=== PATIENT | male | born 1950 | race Caucasian/White ===

== ENCOUNTER 2018-05-01 16:59 | Emergency (ER) | payer MEDICARE, OTHER ==
[2018-05-01 17:02] VITALS: BP 177/96
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
== END 2018-05-01 17:15 | disposition home or self-care (01) ==
LOC: UCEAST 16:59
DX: R07.89 Other chest pain (principal); R06.02 Shortness of breath; R11.2 Nausea with vomiting, unspecified; F43.9 Reaction to severe stress, unspecified; I25.10 Atherosclerotic heart disease of native coronary artery without angina pectoris; Z95.5 Presence of coronary angioplasty implant and graft; E78.5 Hyperlipidemia, unspecified; Z88.1 Allergy status to other antibiotic agents; Z82.49 Family history of ischemic heart disease and other diseases of the circulatory system
CPT/HCPCS: 93005; 99212; G0463

== ENCOUNTER 2018-05-01 17:37 | Emergency (ER) | payer MEDICARE, OTHER ==
--- NOTE | 2018-05-01 18:18 | RAD ---
Indication: Several hours chest pain. Comparison: November 09, 2013 Technique: Dual energy PA chest. Report: Clear lungs and pleural spaces. Negative for pneumothorax. The heart, pulmonary vasculature, and mediastinal contours are unremarkable. Unremarkable osseous structures and soft tissue contours. IMPRESSION: No evidence for acute intrathoracic disease.
[2018-05-01 18:21] LABS: ABS Basophils 0.1 10^3/ul (0-0.2); ABS Eosinophils 0.1 10^3/ul (0-0.6); ABS Lymphocytes 1.6 10^3/ul (1.0-4.8); ABS Monocytes 0.7 10^3/ul (0-0.8); ABS Neutrophils 8.7 10^3/ul (1.5-7.7); ABS Nucleated RBC 0 10^3/ul; Eosinophil % 0.5 % (0-6); Hematocrit 44 % (42-52); Hemoglobin 15.5 g/dl (14.0-18.0); Lymphocyte % 14.5 % (25-47); Mean Corpuscular HGB Conc 35 g/dl (31-36); Mean Corpuscular Hemoglobin 32 pg (27-31); Mean Corpuscular Volume 90 fL (80-94); Mean Platelet Volume 8.7 um3 (7.4-10.4); Nucleated Red Blood Cells % 0; Platelet Count 275 10^3/ul (150-450); Red Blood Count 4.87 10^6/ul (4.00-5.40); Red Cell Distribution Width 13 % (10.5-15); White Blood Count 11.2 10^3/ul (3.5-10.8)
[2018-05-01 18:30] LABS: INR 0.87 (0.77-1.02)
[2018-05-01 18:41] LABS: EGFR Non-African American 59.5 (>60)
[2018-05-01] MEDS ORDERED: clonazePAM TAB(*) 1 MG PO ONE (19:26)
[2018-05-01] MEDS ORDERED: Aspirin 81 mg CHEW TAB* 81 MG TAB.CHEW PO ONE (19:27)
[2018-05-01] MEDS ORDERED: Pantoprazole IV* 40 MG IV ONE (19:27)
[2018-05-01 22:26] VITALS: BP 142/91
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
== END 2018-05-01 22:24 | disposition home or self-care (01) ==
LOC: ED 17:37
DX: R07.89 Other chest pain (principal); Z91.410 Personal history of adult physical and sexual abuse; R06.02 Shortness of breath; R11.2 Nausea with vomiting, unspecified; K21.9 Gastro-esophageal reflux disease without esophagitis; K22.2 Esophageal obstruction; I25.10 Atherosclerotic heart disease of native coronary artery without angina pectoris; I10 Essential (primary) hypertension; Z95.5 Presence of coronary angioplasty implant and graft; E78.00 Pure hypercholesterolemia, unspecified; Z85.51 Personal history of malignant neoplasm of bladder; Z88.1 Allergy status to other antibiotic agents; Z82.49 Family history of ischemic heart disease and other diseases of the circulatory system; Z87.438 Personal history of other diseases of male genital organs; F43.9 Reaction to severe stress, unspecified; E78.5 Hyperlipidemia, unspecified
CPT/HCPCS: 36415; 71045; 80053; 82550; 82553; 83605; 83735; 83880; 84484; 85025; 85379; 85610; 85730; 93005; 96374; 99284; A9270-GY

== ENCOUNTER 2019-11-25 22:12 | Emergency (ER) | payer MEDICARE, BC ==
[2019-11-25 22:44] LABS: ABS Eosinophils 0.4 10^3/ul (0-0.6); ABS Lymphocytes 2.6 10^3/ul (1.0-4.8); ABS Monocytes 0.9 10^3/ul (0-0.8); ABS Neutrophils 5.5 10^3/ul (1.5-7.7); Hematocrit 40 % (42-52); Hemoglobin 14.2 g/dL (14.0-18.0); Lymphocyte % 27.6 %; Mean Corpuscular HGB Conc 36 g/dL (31-36); Mean Corpuscular Hemoglobin 32 pg (27-31); Mean Corpuscular Volume 90 fL (80-94); Mean Platelet Volume 9.1 fL (7.4-10.4); Nucleated Red Blood Cells % 0.1; Platelet Count 278 10^3/uL (150-450); Red Blood Count 4.43 10^6 /uL (4.18-5.48); Red Cell Distribution Width 13 % (10-15); White Blood Count 9.3 10^3/uL (3.5-10.8)
[2019-11-25 22:51] LABS: INR 0.98 (0.82-1.09)
[2019-11-25 22:55] LABS: Albumin/Globulin Ratio 1.5 (1-3); BUN/Creatinine Ratio 19.5 (8-20); Calcium 8.8 mg/dL (8.6-10.3); EGFR African American 73.6 (>60); EGFR Non-African American 60.9 (>60); Globulin 2.6 g/dL (2-4); Total Bilirubin 0.3 mg/dL (0.2-1.0); Total Protein 6.6 g/dL (6.4-8.9)
[2019-11-25 22:58] LABS: Troponin I 0.01 ng/mL (<0.03)
--- NOTE | 2019-11-25 23:03 | ED ---
HPI Chest Pain - HPI Summary HPI Summary: The patient is a 69 y/o male arriving by ambulance to [facility] from [facility] accompanied by with a chief complaint of sudden onset burning and pressure sensation in the mid-sternal chest onset around 1600 tonight. He reports that he was at rest watching football when he felt a burning pressure sensation in the lower esophageal region. He attempted to use Pepto Bismol and Mylanta to no relief, and his symptoms worsened with nausea, vomiting, and hyperventilating. He then went to [facility] a few hours after onset before being advised to come to the ED. At the worst, his pain was rated 8/10 in severity, but now it has improved to 3/10. He notes dizziness with the event, but he states that he often experiences this with Plavix use. He denies any diaphoresis, abdominal pain, or diarrhea. He notes cardiac history with similar sensation of chest pressure to which he did not suffer a PA but had stents placed following a cardiac catheterization. He also has a history of GERD and Schatzki ring. PMHx: CABG, CAD, HLD, HTN, bladder cancer. FHx: cardiac disease with PA fatalities. Nonsmoker, rare EtOH, no substance use. Medications reviewed. Allergies noted. - History of Current Complaint Chief Complaint: EDChestPainROMI Time Seen by Provider: 11/25/19 22:13 Hx Obtained From: Patient Onset/Duration: Started Hours Ago Time of Onset: 16:00 Timing: Constant Initial Severity: Severe - 8/10 Current Severity: Moderate - 3/10 Pain Intensity: 3 Pain Scale Used: 0-10 Numeric Chest Pain Location: Mid Sternal Chest Pain Radiates: No Character: Burning, Pressure/Squeezing Aggravating Factor(s): Nothing Alleviating Factor(s): Nothing Associated Signs and Symptoms: Positive: Chest Pain, Dizziness, Nausea, Vomiting , Other: - hyperventilating; Negative: diarrhea. Negative: Diaphoresis, Abdominal Pain - Allergy/Home Medications Allergies/Adverse Reactions: Allergies Allergy/AdvReac Type Severity Reaction Status Date / Time ciprofloxacin [From Cipro] Allergy Hallucinati Verified 11/25/19 21:22 ons PMH/Surg Hx/FS Hx/Imm Hx Endocrine/Hematology History: Reports: Other Endocrine/Hematological Disorders - HLD Cardiovascular History: Reports: Hx Coronary Artery Disease, Hx Hypercholesterolemia, Hx Hypertension GI History: Reports: Hx Gastroesophageal Reflux Disease Sensory History: Reports: Hx Contacts or Glasses Opthamlomology History: Reports: Hx Contacts or Glasses EENT History: Reports: Other - schatzki ring - Cancer History Cancer Type, Location and Year: Bladder cancer - Surgical History Surgical History: Yes Surgery Procedure, Year, and Place: bladder CA 2007. Melanoma 2000. 3 stents placed 2009 Infectious Disease History: No Infectious Disease History: Denies: Traveled Outside the [place] in Last 30 Days - Family History Known Family History: Positive: Cardiac Disease - PA (mother, father, brother with, sister also has), Other Family History: Positive for PA in mother and CAD in father. Brother - BPH. - Social History Alcohol Use: Rare Hx Substance Use: No Substance Use Type: Reports: None Hx Tobacco Use: No Smoking Status (MU): Never Smoked Tobacco Review of Systems Negative: Skin Diaphoresis Positive: Chest Pain - mid-sternal Positive: Other - hyperventilating Positive: Vomiting, Nausea. Negative: Abdominal Pain, Diarrhea Neurological: Other - dizziness All Other Systems Reviewed And Are Negative: Yes Physical Exam - Summary Physical Exam Summary: Appearance: Well-appearing, Well-nourished, lying in bed comfortably Skin: Warm, dry, no obvious rash Eyes: sclera anicteric, no conjunctival pallor ENT: mucous membranes moist, pharynx appears normal Neck: Supple, nontender Respiratory: Clear to auscultation, no signs of respiratory distress Cardiovascular: Normal S1, S2. No murmurs. Normal distal pulses in tibial and radial bilaterally. Abdomen: Soft, nontender, normal active bowel sounds present Musculoskeletal: Normal, Strength/ROM Intact Neurological: A&Ox3, awake and alert, mentation is normal, speech is fluent and appropriate Psychiatric: affect is normal, does not appear anxious or depressed Triage Information Reviewed: Yes Vital Signs On Initial Exam: Initial Vitals Temp Pulse Resp BP Pulse Ox 98.5 F 89 16 170/91 92 11/25/19 22:12 11/25/19 22:12 11/25/19 22:12 11/25/19 22:12 11/25/19 22:12 Vital Signs Reviewed: Yes Procedures - Sedation Patient Received Moderate/Deep Sedation with Procedure: No Diagnostics - Vital Signs Vital Signs Temp Pulse Resp BP Pulse Ox 11/25/19 22:35 65 24 142/84 93 11/25/19 22:12 98.5 F 89 16 170/91 92 - Laboratory Lab Results: Lab Results 11/25/19 11/25/19 Range/Units 21:48 21:48 WBC 9.3 (3.5-10.8) 10^3/uL RBC 4.43 (4.18-5.48) 10^6 /uL Hgb 14.2 (14.0-18.0) g/dL Hct 40 L (42-52) % MCV 90 (80-94) fL MCH 32 H (27-31) pg MCHC 36 (31-36) g/dL RDW 13 (10-15) % Plt Count 278 (150-450) 10^3/uL MPV 9.1 (7.4-10.4) fL Neut % (Auto) 58.6 % Lymph % (Auto) 27.6 % [place] % (Auto) 9.5 % Eos % (Auto) 4.0 % Baso % (Auto) 0.3 % Absolute Neuts (auto) 5.5 (1.5-7.7) 10^3/ul Absolute Lymphs (auto) 2.6 (1.0-4.8) 10^3/ul Absolute Monos (auto) 0.9 H (0-0.8) 10^3/ul Absolute Eos (auto) 0.4 (0-0.6) 10^3/ul Absolute Basos (auto) 0.0 (0-0.2) 10^3/ul Absolute Nucleated RBC 0.0 10^3/ul Nucleated RBC % 0.1 INR (Anticoag Therapy) 0.98 (0.82-1.09) Result Diagrams: 11/25/19 21:48 11/25/19 21:48 Lab Statement: Any lab studies that have been ordered have been reviewed, and results considered in the medical decision making process. - Radiology CXR Radiology Interpretation Completed By: ED Physician Summary of Radiographic Findings: No acute process. ED physician has reviewed and interpreted this report. Pending official read. - EKG 4349 Cardiac Rate: NL - 70 BPM EKG Rhythm: Sinus Rhythm Summary of EKG Findings: NSR at 70 BPM, old inferior infarct, P waves, QRS complex, and T waves are within normal limits, T waves and intervals are normal , no ischemic changes. This is a normal EKG. ED physician has reviewed and interpreted this EKG. Re-Evaluation - Re-Evaluation First Eval Re-Evaluation Time: 01:00 Comment: Dr. Enriquez has evaluated the patient and has determined that he can be discharged home as he will schedule an outpatient stress test with his own embalmer assistant. Chest Pain Course/Dx - Course Course Of Treatment: 69 y/o male with cardiac and esophageal history presenting with a chief complaint of mid-sternal burning and pressure pain onset around 1600 that worsened with the development of nausea, vomiting, and hyperventilation, but without any diaphoresis, abdominal pain, or diarrhea. Similar episode of chest pressure that indicated need for cath. Family history of fatal MIs. Physical exam is negative for acute findings. Blood work obtained to reveal creatinine of 1.18, alkaline phosphatase of 123, and troponin of 0.1. EKG at 2213 reveals NSR at 70 BPM with old inferior infarct. Patient administered NTG and Morphine for pain. Second troponin negative at 0.00. CXR, per my interpretation, reveals no acute process. Dr. Enriquez from hospitalist services will evaluate the patient. She states that he will schedule a stress test with his embalmer assistant at [facility] today as he was already planning on doing so, so Dr. Enriquez has agreed with discharge. Patient understands and agrees with plan. - Diagnoses Provider Diagnoses: Chest pain - Provider Notifications Discussed Care Of Patient With: Natasha Enriquez - hospitalist Time Discussed With Above Provider: 00:00 Instructed by Provider To: Other - I discussed the patient's case with Dr. Enriquez , and she will evaluate the patient. After evaluating the patient, she has determined that he is safe for discharge because he has planned to schedule a stress test wtih his embalmer assistant today. Discharge ED - Sign-Out/Discharge Documenting (check all that apply): Patient Departure - Patient will be discharged home. - Discharge Plan Condition: Good Disposition: HOME Prescriptions: Omeprazole 20 mg PO DAILY #14 capsule. Patient Education Materials: Chest Pain (ED) Additional Instructions: As we discussed, if you do have more pain or other worrisome symptoms we would want to see you back forthwith. Your EKG and blood tests were negative which does not give us 100% assurance that the pain wasn't coming from your heart, but it certainly makes it much less likely. Followup with your embalmer assistant this week will be important going forward as well. - Billing Disposition and Condition Condition: GOOD Disposition: Home - Attestation Statements Document Initiated by [place]: Yes Documenting Scribe: Tiff Hutchinson Provider For Whom Juana is Documenting (Include Credential): Dr. Tim Martinez MD Scribe Attestation: I, Tiff Hutchinson scribed for Dr. Tim Martinez MD on 11/26/19 at 0143. Scribe Documentation Reviewed: Yes Provider Attestation: The documentation as recorded by the Tiff pacheco accurately reflects the service I personally performed and the decisions made by me, Dr. Tim Martinez MD Status of [place] Document: Viewed
[2019-11-25] MEDS ORDERED: Nitro 2% OINT* (Nitroglycerin) 1 INCH/PAK PAK TOPICAL ONE (23:07)
[2019-11-25] MEDS ORDERED: Morphine 4 MG/ML VIAL (1 ml) 4 MG/ML VIAL IV ONE (23:07)
[2019-11-26 01:19] VITALS: BP 111/61
--- NOTE | 2019-11-26 01:46 | CONSULT ---
Subjective Date of Service: 11/26/19 Interval History: Hospitalist Consult Note 69M PMH sig CAD s/p PCI then CABG, follows with Dr. Alfaro at [facility], GERD w hx of Neha ring, HTN, HLD, obesity, distant hx of bladder Ca and Melanoma who presented to the ER tonight with c/o atypical CP. Pt reports had a mid sternal burning pain that started in the peigastrum and radiated upwards, associated with belching and a metallic taste in his mouth, he has had this a few times before in the setting of drinking milk. He initially went to who referred him to ED, he took Mylanta at home with some relief but b/c his CP persisted he decided to come in . Neg for nausea, vomiting, diaphoresis, radiation ,or pain of neck jaw or arm His epigastric pain improved with a GI cocktail, his EKG showed no acute signs of ischemia and troponins x2 were negative. Given his cardiac hx and HEART score of 6 hospitalist was asked to evaluate pt for admission. Long discussion was had with pt and his , I offered him observation even though initital testing was negative out of abundance of precaution but they inform me they already have follow up stress test which he gets every 2 years at [facility] scheduled for later this week. His last stress was negative. I discuss with them the risks, while unlikely this is unstable angina, if he were to have repeat chest pain could be life threatening, and they assure me they could return. We discuss optimizing his GERD regimen and if his upcoming stress is negative, he follows with Dr. Hardik Henley and may benefit from scope to detminre if neha has returned PMH: As per above Social: Reitred lives with , no tob etoh or illicits Family History: Unchanged from Admission Social History: Unchanged from Admission Past Medical History: Unchanged from Admission Review of Systems - Measurements Intake and Output: Intake and Output Last 24 Hours 11/23/19 11/24/19 11/25/19 11/26/19 06:59 06:59 06:59 06:59 Weight 210 lb - Review of Systems General Comments: As per HPI Objective Vital Signs - 8 hr 11/25/19 11/25/19 11/25/19 22:12 22:35 22:38 Temperature 98.5 F Pulse Rate 89 65 64 Respiratory 16 24 17 Rate Blood Pressure 170/91 142/84 (mmHg) O2 Sat by Pulse 92 93 94 Oximetry 11/25/19 11/25/19 11/25/19 23:00 23:05 23:16 Temperature Pulse Rate 72 64 Respiratory 17 19 16 Rate Blood Pressure 143/74 (mmHg) O2 Sat by Pulse 95 95 Oximetry 11/25/19 11/26/19 11/26/19 23:56 00:00 00:05 Temperature Pulse Rate 64 65 66 Respiratory 18 13 12 Rate Blood Pressure 114/72 132/70 (mmHg) O2 Sat by Pulse 95 94 92 Oximetry 11/26/19 11/26/19 11/26/19 00:35 01:00 01:05 Temperature Pulse Rate 65 65 66 Respiratory 31 15 21 Rate Blood Pressure 127/65 111/61 (mmHg) O2 Sat by Pulse 93 94 93 Oximetry 11/26/19 01:19 Temperature 97.5 F Pulse Rate 66 Respiratory 21 Rate Blood Pressure 111/61 (mmHg) O2 Sat by Pulse 92 Oximetry Appearance: V pleasant man in NAD Eyes: No Scleral Icterus, PERRLA Ears/Nose/Mouth/Throat: NL Teeth, Lips, Gums Neck: NL Appearance and Movements; NL JVP, Trachea Midline Respiratory: Symmetrical Chest Expansion and Respiratory Effort, Clear to Auscultation Cardiovascular: NL Sounds; No Murmurs; No JVD, RRR Abdominal: NL Sounds; No Tenderness; No Distention, No Hepatosplenomegaly Lymphatic: No Cervical Adenopathy Extremities: No Edema Skin: No Rash or Ulcers Neurological: Alert and Oriented x 3 Result Diagrams: 11/25/19 21:48 11/25/19 21:48 Additional Lab and Data: Lab Results 11/25/19 11/25/19 Range/Units 21:48 21:48 WBC 9.3 (3.5-10.8) 10^3/uL RBC 4.43 (4.18-5.48) 10^6 /uL Hgb 14.2 (14.0-18.0) g/dL Hct 40 L (42-52) % MCV 90 (80-94) fL MCH 32 H (27-31) pg MCHC 36 (31-36) g/dL RDW 13 (10-15) % Plt Count 278 (150-450) 10^3/uL MPV 9.1 (7.4-10.4) fL Neut % (Auto) 58.6 % Lymph % (Auto) 27.6 % [place] % (Auto) 9.5 % Eos % (Auto) 4.0 % Baso % (Auto) 0.3 % Absolute Neuts (auto) 5.5 (1.5-7.7) 10^3/ul Absolute Lymphs (auto) 2.6 (1.0-4.8) 10^3/ul Absolute Monos (auto) 0.9 H (0-0.8) 10^3/ul Absolute Eos (auto) 0.4 (0-0.6) 10^3/ul Absolute Basos (auto) 0.0 (0-0.2) 10^3/ul Absolute Nucleated RBC 0.0 10^3/ul Nucleated RBC % 0.1 INR (Anticoag Therapy) 0.98 (0.82-1.09) EKG Data: EKG no acute signs of ischemia Assessment/Plan - Billing 69M PMH sig CAD s/p PCI then CABG, follows with Dr. Alfaro at [facility], GERD w hx of Shatdeepas ring, HTN, HLD, obesity, distant hx of bladder Ca and Melanoma who presented to the ER tonight with c/o atypical CP. EKG and trop x 2 neg, HEART score elevtaed 2/2 to his cardiac hx, though family infomrs me they have stress pt scheduled as outpt and prefer to follow with their venue manager. He feels his pain was from GERD and it is fully resolved with tx. We discuss given excellent outpt plan he is safe to return to home with PPI but if pain returns they know to come into ED. Dispo: dc to home with cardiology follow up, shared decision making decision.
== END 2019-11-26 01:19 | disposition home or self-care (01) ==
LOC: ED 22:12
DX: R07.89 Other chest pain (principal); R11.2 Nausea with vomiting, unspecified; R42 Dizziness and giddiness; R06.4 Hyperventilation; I10 Essential (primary) hypertension; E78.00 Pure hypercholesterolemia, unspecified; K21.9 Gastro-esophageal reflux disease without esophagitis; Z79.01 Long term (current) use of anticoagulants; Z79.82 Long term (current) use of aspirin; Z95.5 Presence of coronary angioplasty implant and graft; Z95.1 Presence of aortocoronary bypass graft; Z88.1 Allergy status to other antibiotic agents; Z82.49 Family history of ischemic heart disease and other diseases of the circulatory system
CPT/HCPCS: 36415; 71046; 80053; 83690; 84484; 85025; 85610; 93005; 99283; A9270-GY; J2270

== ENCOUNTER → 2020-01-30 05:34 | Day surgery (SDC) | payer MEDICARE, BC ==
[~2020-01-30 05:34] MED LIST: Acetaminophen IV 1GM/100ML * 1,000 MG/100 ML VIAL IVPB ONE; Buffered Lidocaine 1% SYRIN* 1 ML/SYRINGE INTRADERM ONE; Bupivacaine 0.25% SDV* 30 ML ONE; EPHEDrine (Pressors)* 50 MG/ML VIAL ONE; Lactated Ringers 1000 ML Bag* 1,000 ML IV SCH; Metoclopramide IV* 5 MG/ML 2 ML VIAL ONE; Metoprolol Tartrate IV* 1 MG/ML 5 ML VIAL ONE; Midazolam* 1 MG/ML 2 ML VIAL (2 MG) ONE; Naloxone* 0.4 MG/ML 1 ML VIAL IV PRN; Ondansetron INJ* 2 MG/ML VIAL ONE; Phenylephrine 40 MCG/ML SYRINGE ONE; Propofol* 10 MG/ML 20 ML BTL ONE; Rocuronium* 10 MG/ML VIAL ONE; Succinylcholine* 20 MG/ML 10 ML VIAL ONE; Sugammadex * 200 MG/2 ML VIAL IV PUSH ONE; ceFAZolin 2 GM PREMIX in ORs 2 GM/50 ML BAG ONE; fentaNYL* 50 MCG/ML 2 ML VIAL (100 MCG VIAL) ONE
--- NOTE | 2020-01-30 09:14 | BRIEFOPN ---
Brief Operative/Procedure Note - Operation Details Pre-Op Diagnosis: Cholecystitis Post-Op Diagnosis: Cholecystitis Procedures: Robotic cholecystectomy Surgeon(s)/Proceduralists: Dr. Pantoja. Assist: SHAKA Miller Anesthesia: GETA Estimated Blood Loss: <25cc Findings: As above Specimen(s)/Culture(s) Description: gallbladder Complications: None
[2020-01-30] MEDS: fentaNYL* 50 MCG/ML 2 ML VIAL (100 MCG VIAL) IV PRN ×3 (09:33→09:40)
[2020-01-30 11:13] VITALS: BP 111/64
--- NOTE | 2020-01-31 18:24 | OP ---
CC: [facility]; Primary Care Doctor * DATE OF OPERATION: 01/30/20 - [facility] DATE OF : 46 SURGEON: Lamine Patnoja MD SALES ORDER SPECIALIST: SHAKA Johnson ANESTHESIA: General anesthesia. PRE-OP DIAGNOSIS: Chronic cholecystitis. POST-OP DIAGNOSIS: Chronic cholecystitis. OPERATIVE PROCEDURE: Robotic cholecystectomy. BLOOD LOSS: Minimal. FLUIDS: Minimal crystalloid fluid given. SPECIMEN: Gallbladder. DESCRIPTION OF PROCEDURE: The patient was identified in the preoperative area. He was marked. Consent was signed. Indomethacin blue dye was injected and the patient was taken to the operating room and placed on the operating table in supine position. Preoperative antibiotics were given. Sequential devices were placed on bilateral lower extremities and general anesthesia was induced. The patient's abdomen was prepped and draped in a standard surgical fashion after clipping hair. A time-out was performed. Folds in the umbilicus were elevated anteriorly and a Veress needle inserted into the abdominal cavity, which was then allowed to insufflate to a pressure of 15 mmHg. The patient tolerated the insufflation well. A left upper quadrant 8-mm robotic trocar was then inserted blindly. Laparoscope was inserted through this and there was no evidence of injury from the trocar insertion or from the Veress needle, which was then removed. Three additional robotic trocars were placed in the appropriate fashion along the lower abdomen and the robot was docked after placing the patient in a reverse Trendelenburg right side up position. From the consult, we were able to identify the gallbladder and fundus was elevated above the liver. Infundibular region was identified and cautery was used to take a peritoneal attachments of the lateral aspect and the medial aspect of the gallbladder. Cystic duct and cystic artery were both isolated. With the help of firefly, we could see one ductal structure going to the gallbladder. I could not appreciate common bile duct with the use of a firefly at this time. The cystic duct was doubly clipped and ligated and the cystic artery was doubly clipped and ligated and the gallbladder was removed from the liver bed and placed in an endoscopic retrieval bag. Review of the cystic duct stump and cystic artery stump showed no bleeding, no bile. Review of the abdomen showed no evidence of adjacent injuries. The liver was able to fall back on top of the surgical site and showed no evidence of bleeding. The specimen was then removed from the right upper quadrant port site after dilating the site to remove the specimen. The abdomen was allowed to collapse. Trocars were removed under direct vision and all 4 skin incisions were reapproximated with 4-0 Monocryl subcuticular sutures followed by Steri- Strips and sterile dressing. The patient tolerated the procedure well, was woken up in the OR and transferred to the PACU in stable condition. [id number]/[id number] #: [id number] JACKI
== END | disposition home or self-care (01) ==
LOC: OR 05:34
PROVIDERS: ATTEND Surgery
DX: K81.1 Chronic cholecystitis (principal); I10 Essential (primary) hypertension; I25.10 Atherosclerotic heart disease of native coronary artery without angina pectoris; Z95.5 Presence of coronary angioplasty implant and graft; G47.33 Obstructive sleep apnea (adult) (pediatric); K21.9 Gastro-esophageal reflux disease without esophagitis; Z79.01 Long term (current) use of anticoagulants; Z85.820 Personal history of malignant melanoma of skin; Z85.51 Personal history of malignant neoplasm of bladder
CPT/HCPCS: 47562; S2900; 36620; 88304; J0330; J0690; J2250; J2405; J2704; J2765; J3010; J3490

== ENCOUNTER 2020-07-09 11:21 | Observation (INO) ==
[~2020-07-09 11:21] MED LIST changes: -Acetaminophen IV 1GM/100ML * 1,000 MG/100 ML VIAL IVPB ONE; +Buffered Lidocaine 1% SYRIN 1 ml INTRADERM ONE; -Buffered Lidocaine 1% SYRIN* 1 ML/SYRINGE INTRADERM ONE; -Bupivacaine 0.25% SDV* 30 ML ONE; -EPHEDrine (Pressors)* 50 MG/ML VIAL ONE; -Lactated Ringers 1000 ML Bag* 1,000 ML IV SCH; +Lactated Ringers 1000 ml BAG 1,000 ML IV SCH; -Metoclopramide IV* 5 MG/ML 2 ML VIAL ONE; -Metoprolol Tartrate IV* 1 MG/ML 5 ML VIAL ONE; -Midazolam* 1 MG/ML 2 ML VIAL (2 MG) ONE; -Naloxone* 0.4 MG/ML 1 ML VIAL IV PRN; -Ondansetron INJ* 2 MG/ML VIAL ONE; -Phenylephrine 40 MCG/ML SYRINGE ONE; -Propofol* 10 MG/ML 20 ML BTL ONE; -Rocuronium* 10 MG/ML VIAL ONE; -Succinylcholine* 20 MG/ML 10 ML VIAL ONE; -Sugammadex * 200 MG/2 ML VIAL IV PUSH ONE; -ceFAZolin 2 GM PREMIX in ORs 2 GM/50 ML BAG ONE; -fentaNYL* 50 MCG/ML 2 ML VIAL (100 MCG VIAL) ONE
[2020-07-09] MEDS ORDERED: Buffered Lidocaine 1% SYRIN 1 ml INTRADERM ONE (12:05)
[2020-07-09] MEDS ORDERED: cefTRIAXone 2 GM ADDV.VIAL ONE (12:05)
[2020-07-09] MEDS ORDERED: Midazolam 2 mg/2 ml VIAL 1 mg/ml 2 ml VIAL (2 mg) ONE (12:25)
[2020-07-09] MEDS ORDERED: Propofol 10 MG/ML 20 ML BTL ONE (12:25)
[2020-07-09] MEDS ORDERED: fentaNYL 100 mcg/2 ml 50 MCG/ML VIAL ONE ×2 (12:25→16:19)
[2020-07-09] MEDS ORDERED: Lidocaine 2% PF 5 ML VIAL ONE (13:08)
[2020-07-09] MEDS ORDERED: Rocuronium 50 mg VIAL 10 mg/ml 5 ml VIAL (50 mg) ONE (13:12)
[2020-07-09 13:21] LABS: Activated Partial Thrombo Time 29.1 seconds (26.0-38.0); INR 0.99 (0.82-1.09)
[2020-07-09] MEDS ORDERED: Dexamethasone IV 4 MG/ML VIAL 1 ml VIAL ONE (14:07)
[2020-07-09] MEDS ORDERED: Ondansetron 4 mg VIAL 2 MG/ML 2 ml VIAL ONE (14:07)
[2020-07-09] MEDS ORDERED: Labetalol IV 5 MG/ML 20 ml VIAL ONE (14:13)
[2020-07-09] MEDS ORDERED: fentaNYL 250 mcg/5 ml 50 MCG/ML 5 ml VIAL (250 MCG) ONE (14:56)
[2020-07-09] MEDS ORDERED: EPHEDrine (Pressors) 50 MG/ML VIAL ONE (15:15)
[2020-07-09] MEDS: fentaNYL 100 mcg/2 ml 50 MCG/ML VIAL IV PRN ×3 (16:15→16:25)
[2020-07-09] MEDS ORDERED: Naloxone 0.4 mg VIAL 0.4 mg/ml 1 ml VIAL IV PRN (16:25)
[2020-07-09 16:42] LABS: ABS Eosinophils 0.1 10^3/ul (0-0.6); ABS Lymphocytes 1.4 10^3/ul (1.0-4.8); ABS Monocytes 0.2 10^3/ul (0-0.8); ABS Neutrophils 9.6 10^3/ul (1.5-7.7); Eosinophil % 0.7 %; Hematocrit 42 % (42-52); Hemoglobin 14.3 g/dL (14.0-18.0); Lymphocyte % 12.2 %; Mean Corpuscular HGB Conc 34 g/dL (31-36); Mean Corpuscular Hemoglobin 31 pg (27-31); Mean Corpuscular Volume 91 fL (80-94); Mean Platelet Volume 8.6 fL (7.4-10.4); Platelet Count 251 10^3/uL (150-450); Red Blood Count 4.58 10^6 /uL (4.18-5.48); Red Cell Distribution Width 13 % (10-15); White Blood Count 11.4 10^3/uL (3.5-10.8)
[2020-07-09 17:19] LABS: BUN/Creatinine Ratio 15.3 (8-20); Calcium 8.6 mg/dL (8.6-10.3); EGFR African American 78.8 (>60); EGFR Non-African American 65.1 (>60); Potassium 3.8 mmol/L (3.5-5.0)
[2020-07-09] MEDS ORDERED: Lidocaine 2% JELLY 6 ML TOPICAL PRN (17:57)
[2020-07-09] MEDS ORDERED: HYDROcodone/ACETAMIN 5/325 mg TAB PO PRN (18:08)
[2020-07-09] MEDS: NS 0.9% 1000 ml BAG 1,000 ML IV SCH ×2 (18:13→19:49)
[2020-07-09] MEDS ORDERED: Dextran 70/Hypromellose Tears Eye Drops 15 ml BTL (for Artificials Tears) BOTH EYES SCH (21:00)
[2020-07-10] MEDS: NS 0.9% 1000 ml BAG 1,000 ML IV SCH (02:32)
[2020-07-10 03:48] VITALS: BP 114/57
[2020-07-10] MEDS ORDERED: HYDROcodone/ACETAMIN 5/325 mg TAB PO PRN (03:51)
[2020-07-10] MEDS ORDERED: Lidocaine 2% JELLY 6 ML TOPICAL PRN (03:57)
[2020-07-10] MEDS ORDERED: NS 0.9% 1000 ml BAG 1,000 ML IV SCH (04:00)
[2020-07-10] MEDS ORDERED: cefTRIAXone 1 gm/50 mL NS BAG 1 GM/50 ML BAG IVPB ONE ×2 (07:00)
[2020-07-10] MEDS ORDERED: Dextran 70/Hypromellose Tears Eye Drops 15 ml BTL (for Artificials Tears) BOTH EYES SCH (09:00)
== END 2020-07-10 11:59 | disposition home or self-care (01) ==
LOC: OR 11:21 → SSU 11:21
PROVIDERS: ADMIT Urology; ATTEND Urology